=== PATIENT | male | born 1980 | race Caucasian/White ===

== ENCOUNTER 2017-08-09 08:38 | Emergency (ER) | payer OTHER ==
[2017-08-09 08:50] VITALS: BMI 25.9
[2017-08-09] MEDS ORDERED: Tdap Vaccine 0.5 ml Vial (10-64 yrs) IM ONE ×2 (09:21→09:45)
[2017-08-09] MEDS ORDERED: Lidocaine 2% Inj (20ml) INFIL ONE (09:22)
--- NOTE | 2017-08-09 10:35 | ED PDOC ---
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 denies: Decreased Vision Additional Complaint(s): Adolfo Matute is a 37 year old male, with no significant past medical history, who presents to the emergency department complaining of a sustained left eye laceration onset prior to arrival. Patient reports he was at work when a heavy plastic container fell on his face. He has a laceration of left upper eyebrow and left eyelid. Patient is complaining of pain to left eye but denies any visual changes or LOC. No further medical complaints. PMD: None provided. Past Medical History Reviewed: Historical Data, Nursing Documentation, Vital Signs Vital Signs: Last Vital Signs Temp 97.9 F 08/09/17 08:50 Pulse 73 08/09/17 08:50 Resp 18 08/09/17 08:50 BP 121/63 08/09/17 08:50 Pulse Ox 98 08/09/17 08:50 - Medical History PMH: No Chronic Diseases - Surgical History Surgical History: No Surg Hx - Family History Family History: States: Unknown Family Hx - Social History Current smoker - smoking cessation education provided: No Alcohol: None Drugs: Denies - Immunization History Hx Tetanus Toxoid Vaccination: No Hx Influenza Vaccination: No Hx Pneumococcal Vaccination: No - Home Medications Home Medications: Ambulatory Orders Medication Instructions Recorded Neomycin/Polymyxin/Hydrocortis 3 drop TOP TID #1 bottle 02/18/17 [Cortisporin Otic Susp] Amoxicillin/Clavulanate [Augmentin 1 tab PO BID #14 tab 08/09/17 875 MG-125 MG] Amoxicillin/Clavulanate [Augmentin 1 tab PO BID #14 tab 08/09/17 875 MG-125 MG] - Allergies Allergies/Adverse Reactions: Allergies Allergy/AdvReac Type Severity Reaction Status Date / Time No Known Allergies Allergy Verified 02/18/17 10:56 Review of Systems ROS Statement: Except As Marked, All Systems Reviewed And Found Negative Eyes: Positive for: Pain (left eye), Other (laceration to left eye). Negative for: Vision Change Physical Exam - Reviewed Nursing Documentation Reviewed: Yes Vital Signs Reviewed: Yes - Physical Exam Appears: Positive for: Non-toxic Head Exam: Positive for: ATRAUMATIC, NORMAL INSPECTION, NORMOCEPHALIC Skin: Positive for: Normal Color, Warm, Dry Eye Exam: Positive for: EOMI, PERRL, Periorbital swelling (mild w/ ecchymosis. no globe rupture), Other (upper eyebrow 5cm laceration going through the eyebrow and upper eyelid. Deep & linear, not a [id number]. No active bleeding). Negative for: Conjunctival injection (or hyphema. No proptosis or ptosis ) Neck: Positive for: Painless ROM Respiratory: Negative for: Respiratory Distress Extremity: Positive for: Normal ROM (upper and lower extremity). Negative for: Deformity, Swelling Neurologic/Psych: Positive for: Alert, Oriented. Negative for: Motor/Sensory Deficits - ECG O2 Sat by Pulse Oximetry: 98 (RA) Pulse Ox Interpretation: Normal Medical Decision Making Medical Decision Making: Initial Impression: left upper eyelid & eyebrow laceration Initial Plan: --Orbits/Facials w/o contrast [CT] --Lidocaine 2% 20 ml 5ml INFIL --Adacel 0.5 ml IM --Reevaluation 10:45 -Dr. Lees saw patient, pt can be discharged with no need for antibiotics. Patient advised to follow up in his office in x1 week. 10:[address] FINDINGS: NASAL BONES: Unremarkable. ORBITS: Moderate left periorbital soft tissue edema is identified extending into the left frontal and paranasal soft tissues with trace emphysematous changes in the deep midline frontal soft tissues. PARANASAL SINUSES/ MASTOIDS: Limited eft left ethmoid and maxillary sinus disease appreciated. Right maxillary sinus polyps or cysts are noted. MAXILLA: Unremarkable. MANDIBLE/ TEMPOROMANDIBULAR JOINTS: No fracture appreciated. An apical root lucency is appreciate related to the roots of the right mandibular canine potentially reflecting an abscess. SKULL BASE: Unremarkable. TEMPORAL BONES: Middle ears and mastoid grossly unremarkable. OTHER FINDINGS: None. IMPRESSION: No acute fracture or destructive bony lesion appreciable. Preseptal soft tissue edema is appreciated moderately involving the left orbit relatively diffusely with extension into the frontal soft tissues and midline paranasal soft tissues. Emphysematous changes seen in the deep midline frontal soft tissues. Right maxillary sinus or polyps with fluid at the left maxi sinus minimally as well as 1 or 2 anterior left ethmoid air cells likely on a more acute bases though this is not definitive. Incidental periapical lucency related to the right mandibular canine possibly reflecting an abscess. Scribe Attestation: Documented by Ky Herring, acting as a scribe for Kristin Gamez MD Provider Scribe Attestation: All medical record entries made by the Scribe were at my direction and personally dictated by me. I have reviewed the chart and agree that the record accurately reflects my personal performance of the history, physical exam, medical decision making, and the department course for this patient. I have also personally directed, reviewed, and agree with the discharge instructions and disposition. Disposition - Clinical Impression Clinical Impression: Sinusitis, Dental abscess, Head injury, Laceration, eyelid, left, Laceration of eyebrow, left - Patient ED Disposition Is Patient to be Admitted: No Doctor Will See Patient In The: Office Counseled Patient/Family Regarding: Studies Performed, Diagnosis, Need For Followup - Disposition Referrals: Blaise Lees MD [Staff Provider] - Disposition: Routine/Home Disposition Time: 12:30 Condition: GOOD Additional Instructions: Take medications as instructed. Follow up with your PCP in 2-3 days. Follow up with Dr Lees within 1 week. Prescriptions: Amoxicillin/Clavulanate [Augmentin 875 MG-125 MG] 1 tab PO BID #14 tab Amoxicillin/Clavulanate [Augmentin 875 MG-125 MG] 1 tab PO BID #14 tab Instructions: Sinusitis in Adults, Closed Head Injury (DC), Laceration Repair With Stitches (DC), Tooth Abscess (DC), Eye Contusion (DC) Print Language: HONG KONGER
--- NOTE | 2017-08-09 10:41 | CT ---
PROCEDURE: CT MAXILLOFACIAL BONES WITHOUT CONTRAST HISTORY: left eye injury COMPARISON: None TECHNIQUE: Contiguous axial CT images of the maxillofacial bones were obtained. Coronal and sagittal reformats were generated. Radiation dose: Total exam DLP = 836.12 mGy-cm. This CT exam was performed using one or more of the following dose reduction techniques: Automated exposure control, adjustment of the mA and/or kV according to patient size, and/or use of iterative reconstruction technique. FINDINGS: NASAL BONES: Unremarkable. ORBITS: Moderate left periorbital soft tissue edema is identified extending into the left frontal and paranasal soft tissues with trace emphysematous changes in the deep midline frontal soft tissues. PARANASAL SINUSES/ MASTOIDS: Limited eft left ethmoid and maxillary sinus disease appreciated. Right maxillary sinus polyps or cysts are noted. MAXILLA: Unremarkable. MANDIBLE/ TEMPOROMANDIBULAR JOINTS: No fracture appreciated. An apical root lucency is appreciate related to the roots of the right mandibular canine potentially reflecting an abscess. SKULL BASE: Unremarkable. TEMPORAL BONES: Middle ears and mastoid grossly unremarkable. OTHER FINDINGS: None. IMPRESSION: No acute fracture or destructive bony lesion appreciable. Preseptal soft tissue edema is appreciated moderately involving the left orbit relatively diffusely with extension into the frontal soft tissues and midline paranasal soft tissues. Emphysematous changes seen in the deep midline frontal soft tissues. Right maxillary sinus or polyps with fluid at the left maxi sinus minimally as well as 1 or 2 anterior left ethmoid air cells likely on a more acute bases though this is not definitive. Incidental periapical lucency related to the right mandibular canine possibly reflecting an abscess.
--- NOTE | 2017-08-09 11:41 | PCM.PROC ---
Procedures Attestation:: I certify that I have explained the specified Operation(s) or Procedure(s), risks, benefits and reasonable alternatives to the Patient and/or other person responsible. The opportunity was given to ask questions and all questions answered - Laceration lidocaine 1% simple, single layer linear wound explored left face 5-0 other Site: face Side (if applicable): left Size (cm): 4 Description: linear Depth: simple, single layer Anesthesia used: lidocaine 1% Anesthesia technique: local infiltration Amount (mLs): 10 Pre-repair: wound explored, irrigated extensively Skin layer closed with: other (prolene) Size: 5-0 Number of sutures: 1 Technique: running
[2017-08-09 12:54] VITALS: BP 125/75; PULSE 81; RESP 16
[2017-08-09 13:29] VITALS: TEMP 97.9
[2017-08-09 18:14] VITALS: O2SAT 98
== END 2017-08-09 12:50 | disposition home or self-care (01) ==
LOC: H.ER 08:38
DX: J32.9 Chronic sinusitis, unspecified (principal); K04.7 Periapical abscess without sinus; S09.90XA Unspecified injury of head, initial encounter; S01.112A Laceration without foreign body of left eyelid and periocular area, initial encounter; S05.92XA Unspecified injury of left eye and orbit, initial encounter; Z23 Encounter for immunization